=== PATIENT | female | born 1935 | race Caucasian/White ===

== ENCOUNTER 2022-07-07 12:31 | Inpatient (IN) | payer MEDICARE, OTHER ==
[2022-07-07] MEDS ORDERED: Vancomycin 1 GM VIAL ONE (13:33)
[2022-07-07] MEDS ORDERED: Cefepime 2 GM VIAL ONE (13:33)
[2022-07-07 13:44] LABS: #Basophils 0.1 10x3/uL (0.0-0.2); #Eosinphils 0.1 10x3/uL (0.0-0.5); #Monocytes 1.4 10x3/uL (0.0-1.1); #Neutrophils 11.3 10x3/uL (1.5-8.4); %Basophils 0.4 % (0.0-2.0); %Eosinophils 0.4 % (0.0-6.0); %Lymphocytes 4.9 % (18.0-47.0); %Monocytes 9.9 % (0.0-10.0); %Neutrophils 83.2 % (40.0-75.0); Hemoglobin 13.2 g/dL (12.0-15.5); Mean Corpuscular HGB CONC 34.9 g/dL (32.0-36.0); Mean Corpuscular Hemoglobin 33.8 pg (27.0-33.0); Mean Corpuscular Volume 96.7 fl (81.6-98.3); Platelet Count 470 10x3/uL (150-450); RBC Distribution Width 14.3 % (11.5-14.5); Red Blood Cell (RBC) Count 3.91 10x6/uL (3.90-5.03); White Blood Cell (WBC) Count 13.6 10x3/uL (3.5-10.5)
[2022-07-07 13:52] LABS: ALT (SGPT) 29 U/L (8-55); AST (SGOT) 35 U/L (5-34); Albumin 2.7 g/dL (3.4-4.8); Alkaline Phosphatase 158 U/L (40-110); Anion Gap 11 mmol/L (10-20); BUN (Urea Nitrogen) 15 mg/dL (9.8-20.1); Calc. Creatinine Clearance 0 mL/min (70-130); Calcium 8.3 mg/dL (7.8-10.44); Carbon Dioxide 24 mmol/L (23-31); Chloride 95 mmol/L (98-107); Estimated GFR 94; Globulin 2.5 g/dL (2.4-3.5); Glucose 102 mg/dL (83-110); Potassium 4.4 mmol/L (3.5-5.1); Protein, Total 5.2 g/dL (5.8-8.1); Sodium 126 mmol/L (136-145)
[2022-07-07 14:45] LABS: Bilirubin Neg (Negative); Blood, Urine 50 (Negative); Clarity Cloudy (Clear); Glucose, Urine (Dipstick) Normal (Negative); Ketone, Urine Negative (Negative); Leukocyte 500 (Negative); Nitrite Positive (Negative); Protein, Urine (Dipstick) 100 mg/dl (Neg-Trace); Specific Gravity, Urine 1.015 (1.005-1.030); Urobilinogen Normal mg/dL (Less than 2)
[2022-07-07 15:10] LABS: Bacteria/HPF 3+ HPF (None Seen); RBC/HPF 0-3 HPF (0-3); Squamous Epithelial 0-3 HPF (0-3); WBC/HPF Greater than 50 HPF (0-3); White Blood Cell Cast 0-3 LPF (None Seen)
[2022-07-07] MEDS ORDERED: Acetaminophen 325 MG TAB PO PRN (15:42)
[2022-07-07] MEDS ORDERED: Ondansetron PF 4 MG/2 ML Vial IVP PRN (15:42)
[2022-07-07] MEDS ORDERED: Acetaminophen 650 MG Suppository PR PRN (15:42)
[2022-07-07] MEDS ORDERED: Ondansetron ODT 4 MG TAB PO PRN (15:42)
[2022-07-07] MEDS ORDERED: cefTRIAXone\\ROCEPHIN 2 GM VIAL ONE (20:06)
[2022-07-07] MEDS ORDERED: Sodium Chloride 0.9% 1,000 ML IV SCH (20:15)
[2022-07-07] MEDS: cefTRIAXone\\ROCEPHIN 2 GM in Sodium Chloride 0.9% 100 ML IVPB SCH (20:16)
[2022-07-07 20:43] LABS: Sodium 125 mmol/L (136-145)
[2022-07-07 22:23] LABS: SARS-CoV-2 NAA Rapid Test DETECTED (NotDetected)
[2022-07-08 02:27] LABS: #Basophils 0.1 10x3/uL (0.0-0.2); #Eosinphils 0.1 10x3/uL (0.0-0.5); #Monocytes 1.3 10x3/uL (0.0-1.1); #Neutrophils 11.5 10x3/uL (1.5-8.4); %Basophils 0.4 % (0.0-2.0); %Eosinophils 0.4 % (0.0-6.0); %Lymphocytes 5.2 % (18.0-47.0); %Monocytes 9.3 % (0.0-10.0); %Neutrophils 83.7 % (40.0-75.0); Hemoglobin 11.3 g/dL (12.0-15.5); Mean Corpuscular HGB CONC 34.3 g/dL (32.0-36.0); Mean Corpuscular Hemoglobin 33.1 pg (27.0-33.0); Mean Corpuscular Volume 96.5 fl (81.6-98.3); Mean Platelet Volume 7.8 fl (7.4-10.4); Platelet Count 402 10x3/uL (150-450); RBC Distribution Width 14.3 % (11.5-14.5); Red Blood Cell (RBC) Count 3.41 10x6/uL (3.90-5.03); White Blood Cell (WBC) Count 13.7 10x3/uL (3.5-10.5)
[2022-07-08 02:34] LABS: Sodium 127 mmol/L (136-145)
[2022-07-08 02:50] LABS: Anion Gap 10 mmol/L (10-20); BUN (Urea Nitrogen) 12 mg/dL (9.8-20.1); Calc. Creatinine Clearance 61 mL/min (70-130); Calcium 7.6 mg/dL (7.8-10.44); Carbon Dioxide 21 mmol/L (23-31); Chloride 99 mmol/L (98-107); Estimated GFR 95; Glucose 73 mg/dL (83-110); Sodium 126 mmol/L (136-145)
[2022-07-08] MEDS ORDERED: Furosemide 20 MG/2 ML VIAL SLOW IVP SCH (06:45)
[2022-07-08] MEDS ORDERED: FLU VACC QS2022-23(65YR UP)/PF 240 MCG/0.7 ML SYRINGE IM ONE (09:00)
[2022-07-08] MEDS ORDERED: Fleet Enema 133 ML BOT PR SCH (10:00)
[2022-07-08] MEDS ORDERED: Albumin 25% 25 GM/100 ML BOT IVPB SCH (10:00)
[2022-07-08] MEDS ORDERED: Fleet Enema 133 ML BOT ONE (10:11)
[2022-07-08] MEDS ORDERED: Dextrose 50% Abboject 50 ML SYRINGE SLOW IVP PRN (10:39)
[2022-07-08] MEDS ORDERED: Dextrose 5% in Water 1,000 ML IV PRN (10:39)
[2022-07-08 14:22] VITALS: BMI 16.0
[2022-07-08] MEDS: cefTRIAXone\\ROCEPHIN 2 GM in Sodium Chloride 0.9% 100 ML IVPB SCH (19:56)
[2022-07-09 04:40] LABS: #Eosinphils 0.1 10x3/uL (0.0-0.5); #Monocytes 1.4 10x3/uL (0.0-1.1); #Neutrophils 11.4 10x3/uL (1.5-8.4); %Basophils 0.3 % (0.0-2.0); %Eosinophils 0.7 % (0.0-6.0); %Lymphocytes 4.5 % (18.0-47.0); %Monocytes 10.2 % (0.0-10.0); %Neutrophils 83.6 % (40.0-75.0); Hemoglobin 11.1 g/dL (12.0-15.5); Mean Corpuscular HGB CONC 34.7 g/dL (32.0-36.0); Mean Corpuscular Hemoglobin 33.3 pg (27.0-33.0); Mean Corpuscular Volume 96.1 fl (81.6-98.3); Mean Platelet Volume 7.7 fl (7.4-10.4); Platelet Count 401 10x3/uL (150-450); RBC Distribution Width 14.1 % (11.5-14.5); Red Blood Cell (RBC) Count 3.33 10x6/uL (3.90-5.03); White Blood Cell (WBC) Count 13.7 10x3/uL (3.5-10.5)
[2022-07-09 04:50] LABS: ALT (SGPT) 16 U/L (8-55); AST (SGOT) 17 U/L (5-34); Albumin 2.4 g/dL (3.4-4.8); Alkaline Phosphatase 110 U/L (40-110); Anion Gap 7 mmol/L (10-20); BUN (Urea Nitrogen) 12 mg/dL (9.8-20.1); Bilirubin, Total 0.6 mg/dL (0.2-1.2); Calc. Creatinine Clearance 61 mL/min (70-130); Calcium 8.1 mg/dL (7.8-10.44); Carbon Dioxide 27 mmol/L (23-31); Chloride 99 mmol/L (98-107); Estimated GFR 95; Globulin 1.9 g/dL (2.4-3.5); Glucose 104 mg/dL (83-110); Protein, Total 4.3 g/dL (5.8-8.1); Sodium 130 mmol/L (136-145)
[2022-07-09] MEDS ORDERED: Potassium Chloride 20 MEQ TAB PO SCH (07:45)
[2022-07-09] MEDS ORDERED: Electrolyte Replacement Protocol 1 EACH FS SCH (07:45)
[2022-07-09] MEDS: Potassium Bicarbonate/Cit Ac 20 MEQ TAB PO SCH ×2 (10:12→14:51)
[2022-07-09 10:33] LABS: Bilirubin Neg (Negative); Blood, Urine 50 (Negative); Clarity Clear (Clear); Glucose, Urine (Dipstick) Normal (Negative); Ketone, Urine 5 mg/dL (Negative); Leukocyte 100 (Negative); Nitrite Negative (Negative); Protein, Urine (Dipstick) 15 mg/dl (Neg-Trace); Specific Gravity, Urine 1.015 (1.005-1.030); Urobilinogen Normal mg/dL (Less than 2)
[2022-07-09 11:01] LABS: Bacteria/HPF Rare-Few HPF (None Seen); Squamous Epithelial 0-3 HPF (0-3); WBC/HPF 21-50 HPF (0-3)
[2022-07-09] MEDS: Estrogens, Conjugated 30 GM TUBE VAG SCH (20:36)
[2022-07-09] MEDS: cefTRIAXone\\ROCEPHIN 1 GM in Sodium Chloride 0.9% 100 ML IVPB SCH (20:50)
[2022-07-10 05:48] LABS: ALT (SGPT) 15 U/L (8-55); AST (SGOT) 17 U/L (5-34); Albumin 2.3 g/dL (3.4-4.8); Alkaline Phosphatase 109 U/L (40-110); Anion Gap 8 mmol/L (10-20); BUN (Urea Nitrogen) 10 mg/dL (9.8-20.1); Bilirubin, Total 0.7 mg/dL (0.2-1.2); Calc. Creatinine Clearance 61 mL/min (70-130); Calcium 8.3 mg/dL (7.8-10.44); Carbon Dioxide 29 mmol/L (23-31); Chloride 100 mmol/L (98-107); Estimated GFR 95; Globulin 1.9 g/dL (2.4-3.5); Glucose 80 mg/dL (83-110); Magnesium 1.7 mg/dL (1.6-2.6); Potassium 4.2 mmol/L (3.5-5.1); Protein, Total 4.2 g/dL (5.8-8.1); Sodium 133 mmol/L (136-145)
[2022-07-10] MEDS ORDERED: Magnesium 2 GM/50 ML(in water) 2 GM in Premix Bag 1 BAG IVPB SCH (06:00)
[2022-07-10 06:46] LABS: #Eosinphils 0.1 10x3/uL (0.0-0.5); #Monocytes 1.1 10x3/uL (0.0-1.1); #Neutrophils 7.7 10x3/uL (1.5-8.4); %Basophils 0.4 % (0.0-2.0); %Eosinophils 0.6 % (0.0-6.0); %Lymphocytes 5.6 % (18.0-47.0); %Monocytes 11.8 % (0.0-10.0); %Neutrophils 80.8 % (40.0-75.0); Hemoglobin 10.7 g/dL (12.0-15.5); Mean Corpuscular HGB CONC 34.3 g/dL (32.0-36.0); Mean Corpuscular Hemoglobin 32.9 pg (27.0-33.0); Mean Platelet Volume 8.1 fl (7.4-10.4); Platelet Count 437 10x3/uL (150-450); RBC Distribution Width 14.6 % (11.5-14.5); Red Blood Cell (RBC) Count 3.25 10x6/uL (3.90-5.03); White Blood Cell (WBC) Count 9.6 10x3/uL (3.5-10.5)
[2022-07-10] MEDS: cefTRIAXone\\ROCEPHIN 1 GM in Sodium Chloride 0.9% 100 ML IVPB SCH (20:33)
[2022-07-10] MEDS ORDERED: Guaifenesin DM 100-10/5 ML UDCUP PO PRN (22:19)
[2022-07-10] MEDS: Estrogens, Conjugated 30 GM TUBE VAG SCH (23:30)
[2022-07-11 07:58] LABS: Mean Corpuscular HGB CONC 33.9 g/dL (32.0-36.0); Mean Corpuscular Hemoglobin 33.1 pg (27.0-33.0); Mean Corpuscular Volume 97.8 fl (81.6-98.3); RBC Distribution Width 14.4 % (11.5-14.5); Red Blood Cell (RBC) Count 3.62 10x6/uL (3.90-5.03); White Blood Cell (WBC) Count 10.8 10x3/uL (3.5-10.5)
[2022-07-11 08:16] LABS: Anion Gap 14 mmol/L (10-20); BUN (Urea Nitrogen) 6 mg/dL (9.8-20.1); Calc. Creatinine Clearance 61 mL/min (70-130); Calcium 8.4 mg/dL (7.8-10.44); Carbon Dioxide 20 mmol/L (23-31); Chloride 104 mmol/L (98-107); Estimated GFR 95; Glucose 72 mg/dL (83-110); Potassium 4.2 mmol/L (3.5-5.1); Sodium 134 mmol/L (136-145)
[2022-07-11 08:46] LABS: Platelet Count 434 10x3/uL (150-450)
[2022-07-11 08:50] LABS: #Basophils 0.1 10x3/uL (0.0-0.2); #Eosinphils 0.1 10x3/uL (0.0-0.5); #Monocytes 1.1 10x3/uL (0.0-1.1); #Neutrophils 8.8 10x3/uL (1.5-8.4); %Basophils 0.6 % (0.0-2.0); %Eosinophils 0.6 % (0.0-6.0); %Lymphocytes 6.7 % (18.0-47.0); %Monocytes 9.8 % (0.0-10.0); %Neutrophils 81.3 % (40.0-75.0); Mean Platelet Volume 8.2 fl (7.4-10.4)
[2022-07-11] MEDS ORDERED: cefTRIAXone\\ROCEPHIN 1 GM in Sodium Chloride 0.9% 100 ML IVPB SCH (09:00)
[2022-07-11 13:02] VITALS: BP 109/52; TEMP 98.5
== END 2022-07-11 14:00 | disposition hospice, home (50) | DRG 871 ==
LOC: CSHERS 12:31 → CSHERHOLD 19:52 → CSHTELE 22:28
PROVIDERS: ADMIT Internal Medicine; ATTEND Family Medicine
PROC: 3E03329 Introduction of Other Anti-infective into Peripheral Vein, Percutaneous Approach (ICD-10-PCS; principal; 2022-07-07)
PROC: 30233J1 Transfusion of Nonautologous Serum Albumin into Peripheral Vein, Percutaneous Approach (ICD-10-PCS; 2022-07-08)
PROC: 0T9B70Z Drainage of Bladder with Drainage Device, Via Natural or Artificial Opening (ICD-10-PCS; 2022-07-09)
DX: A02.1 Salmonella sepsis (principal); G93.41 Metabolic encephalopathy; J96.20 Acute and chronic respiratory failure, unspecified whether with hypoxia or hypercapnia; U07.1 COVID-19; R64 Cachexia; Z68.1 Body mass index [BMI] 19.9 or less, adult; E44.0 Moderate protein-calorie malnutrition; N39.0 Urinary tract infection, site not specified; E22.2 Syndrome of inappropriate secretion of antidiuretic hormone; J90 Pleural effusion, not elsewhere classified; G62.9 Polyneuropathy, unspecified; M81.0 Age-related osteoporosis without current pathological fracture; I08.1 Rheumatic disorders of both mitral and tricuspid valves; K59.00 Constipation, unspecified; Z66 Do not resuscitate; R13.12 Dysphagia, oropharyngeal phase; R33.9 Retention of urine, unspecified; Z88.8 Allergy status to other drugs, medicaments and biological substances; Z88.1 Allergy status to other antibiotic agents; Z79.82 Long term (current) use of aspirin; Z79.899 Other long term (current) drug therapy; Z90.49 Acquired absence of other specified parts of digestive tract; Z90.710 Acquired absence of both cervix and uterus; Z98.890 Other specified postprocedural states
CPT/HCPCS: 36415; 36416; 71045; 74018; 80048; 80053; 81001; 81003; 81015; 82570; 83605; 83735; 83930; 83935; 85025; 87040; 87077; 87086; 87186; 93005; 93010; 94760; 94762; 97139; J0692; J0696; J1650; J1940; J3370; J3475; J3490; J7050; P9047; U0002